=== PATIENT | female | born 1995 | race Two or more races ===

== ENCOUNTER 2017-02-04 10:20 | Emergency (ER) | payer OTHER ==
[2017-02-04] MEDS ORDERED: IBUPROFEN 600 MG TABLET (FP) PO ONE ×2 (10:28→10:34)
[2017-02-04 10:29] VITALS: BP 125/81; PULSE 88; TEMP 97.3; BMI 20.9
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
== END 2017-02-04 10:55 | disposition home or self-care (01) ==
LOC: FER 10:20
DX: S60.221A Contusion of right hand, initial encounter (principal); V43.52XA Car driver injured in collision with other type car in traffic accident, initial encounter; Y93.89 Activity, other specified; Y92.410 Unspecified street and highway as the place of occurrence of the external cause
CPT/HCPCS: 99283-25

== ENCOUNTER 2017-06-04 17:53 | Emergency (ER) | payer OTHER ==
--- NOTE | 2017-06-04 17:58 | PDOC ---
Rapid Medical Evaluation Chief Complaint: Allergic Reaction Time Seen by Provider: 06/04/17 17:55 Medical Evaluation: Allergies Allergy/AdvReac Type Severity Reaction Status Date / Time No Known Allergies Allergy Unverified 08/11/13 21:11 06/04/17 17:56 have performed a brief in-person evaluation of this patient. The patient presents with a chief complaint of: pruritic rash to face/chest x 2 days. No known food/drug allergies Pertinent physical exam findings:stable w/ multiple erythematous macules on chest/face I have ordered the following:nothing The patient will proceed to the ED for further evaluation.
--- NOTE | 2017-06-04 17:58 | PDOC ---
Rapid Medical Evaluation Chief Complaint: Allergic Reaction Time Seen by Provider: 06/04/17 17:55 Medical Evaluation: Allergies Allergy/AdvReac Type Severity Reaction Status Date / Time No Known Allergies Allergy Unverified 06/04/17 17:57 Vital Signs Temp Pulse Resp BP Pulse Ox 97.2 F L 80 18 134/74 100 06/04/17 17:56 06/04/17 17:56 06/04/17 17:56 06/04/17 17:56 06/04/17 17:56 Discharge Disposition - Diagnosis Rash - Referrals - Patient Instructions - Post Discharge Activity
[2017-06-04 18:04] VITALS: BP 134/74; PULSE 80; TEMP 97.2; BMI 22.6
== END 2017-06-04 20:23 | disposition home or self-care (01) ==
LOC: JERFT 17:53
DX: R21 Rash and other nonspecific skin eruption (principal)
CPT/HCPCS: 99281-25

== ENCOUNTER → 2017-06-04 | Emergency (ER) | payer OTHER ==
[2017-06-04 19:17] VITALS: BP 129/59; PULSE 80; TEMP 98.1; BMI 21.2
== END | disposition left against medical advice (07) ==
LOC: FER 19:11
DX: Z53.21 Procedure and treatment not carried out due to patient leaving prior to being seen by health care provider (principal)
CPT/HCPCS: 99282-25